=== PATIENT | male | born 1985 | race Caucasian/White ===

== ENCOUNTER 2024-12-24 17:47 | Emergency (ER) | payer OTHER, BC ==
[~2024-12-24] VITALS: Ht 175.3 cm; Wt 82.0 kg
[2024-12-24 18:39] VITALS: TEMP 37.1; O2SAT 99
[2024-12-24] MEDS ORDERED: IBUP-1455 MT (20:17)
[2024-12-24] MEDS: IBUPROFEN 600MG TABLET PO ONE (20:37)
[2024-12-24 21:14] VITALS: BP 159/75; PULSE 87; RESP 18; O2SAT 99
[2025-01-17] MEDS ORDERED: TRAM50TA3 MT (16:20)
== END 2024-12-24 21:16 | disposition home or self-care (01) ==
LOC: ER 17:47
DX: S52.691A Other fracture of lower end of right ulna, initial encounter for closed fracture (principal); V89.2XXA Person injured in unspecified motor-vehicle accident, traffic, initial encounter; Y93.89 Activity, other specified; Y92.89 Other specified places as the place of occurrence of the external cause; Y99.8 Other external cause status
CPT/HCPCS: 99283; 73090; 29125; A6449